=== PATIENT | male | born 1960 | race Caucasian/White ===

== ENCOUNTER 2017-11-05 08:22 | Emergency (ER) | payer OTHER ==
[~2017-11-05] VITALS: Ht 190.5 cm; Wt 137.3 kg
[2017-11-05 08:50] VITALS: Ht 190.5 cm; Wt 137.3 kg
[2017-11-05] MEDS ORDERED: FLOMAX0.4 MG PO (08:54)
[2017-11-05] MEDS ORDERED: LIPITOR20 MG PO (08:54)
[2017-11-05] MEDS ORDERED: FLECAINIDE ACET50 MG (08:55)
[2017-11-05] MEDS ORDERED: DOXYCYCLINE HY100 M2 PO (08:55)
[2017-11-05] MEDS ORDERED: BACTROBAN CREAM15 GM TOPICAL (08:56)
[2017-11-05] MEDS ORDERED: VALTREX1000 MG PO (10:01)
[2017-11-05] MEDS ORDERED: HYDROCODON-ACE1 EAC7 PO (10:02)
[2017-11-05 10:10] VITALS: BP 120/78
== END 2017-11-05 10:10 | disposition home or self-care (01) ==
LOC: D.ER 08:22
DX: S90.422A Blister (nonthermal), left great toe, initial encounter (principal); X58.XXXA Exposure to other specified factors, initial encounter; Y93.89 Activity, other specified; Y92.89 Other specified places as the place of occurrence of the external cause; F17.200 Nicotine dependence, unspecified, uncomplicated

== ENCOUNTER → 2018-11-18 08:26 | Outpatient (CLI) | payer OTHER ==
[2017-11-05 08:50] VITALS: BMI 37.8
[~2018-11-18 08:26] MED LIST: BACTROBAN CREAM15 GM TOPICAL; DOXYCYCLINE HY100 M2 PO; FLECAINIDE ACET50 MG; FLOMAX0.4 MG PO; HYDROCODON-ACE1 EAC7 PO; LIPITOR20 MG PO; VALTREX1000 MG PO
--- NOTE | 2018-11-19 11:19 | EC ---
PATIENT:IZABELLA BONNER DATE OF SERVICE: 11/18/18 SEX: M MEDICAL RECORD: [id number] DATE OF : 62 LOCATION:[facility] AGE OF PATIENT: 58 ADMISSION DATE: 11/18/18 REFERRING PHYSICIAN: INTERPRETING PHYSICIAN: KATINA FRIAS MD ECHOCARDIOGRAM REPORT ECHO CHARGES 4 ECHO COMPLETE Date: 11/18/18 CLINICAL DIAGNOSIS: CAD ECHOCARDIOGRAPHIC MEASUREMENTS (adult normal given) AC root (d.<3.7cm) 3.7 cm LV Septum d (<1.2 cm> 1.4 cm Valve Excursion 2.4 cm LV Septum (systole) 1.9 cm Left Atria (s.<4.0cm> 3.9 cm LVPW d(<1.2cm) 1.2 cm RV (d.<2.3cm) 3.6 cm LVPW (sytole) 2.1 cm LV diastole(<5.6CM) 6.6 cm MV E-F(>70mm/sec) cm LV systole 3.9 cm LVOT Diameter 2.7 cm MV exc.(>10mm) cm Est.ejection fraction (50-75%) % DOPPLER: LVIT cm/sec A cm/sec E 78.0 cm/sec LA cm/sec RVSP 21.2 mmHg LVOT 108 cm/sec AOP1/2T m/s Asc. Ao 172 cm/sec RVOT 85.0 cm/sec RA cm/sec PA 110 cm/sec AV Gradient Peak 12.0 mmHg AV Mean 5.2 mmHg AV Area 3.9 cm MV Gradient Peak 2.5 mmHg MV Mean 0.95 mmHg MV Area cm COMMENTS: Pictures Editor: 1 AJ WAYNE Crm Architect: 2 Dr. Joseph TAPE# PACS Pericardial Effusion N DATE OF SERVICE: 11/18/2018 ECHOCARDIOGRAM DATE OF SERVICE: 11/18/2018 FINDINGS: 1. Left ventricular chamber size is dilated. Left ventricular systolic function is preserved at 50%. 2. Left atrium, right atrium, and right ventricular chamber sizes are within ECHOCARDIOGRAM REPORT [id number] IZABELLA BONNER normal limits. 3. Valvular structures have normal structure and motion. 4. Doppler interrogation reveals trace mitral regurgitation, no other valvular insufficiency or stenosis and pulmonary systolic pressure is normal estimated at 21 mmHg. 5. No evidence of pericardial effusion or left ventricular thrombus. TRANSINT:[id number] Voice Confirmation ID: [id number] DOCUMENT ID: [id number] KATINA FRIAS MD at 1119 CC: [id number] DICTATION DATE: 11/18/18 1203 HELP DESK SUPERVISOR: 11/18/18 1346 DEP CLI 11/18/18 [place] [id number] [place] [id number]
== END | disposition home or self-care (01) ==
LOC: D.ECHO 08:26
DX: I25.10 Atherosclerotic heart disease of native coronary artery without angina pectoris (principal)